=== PATIENT | male | born 1965 | race Caucasian/White ===

== ENCOUNTER 2024-08-25 16:42 | Emergency (ER) | payer SELFPAY ==
[2024-08-25] VITALS (31 sets, daily range): BP systolic 81–236; BP diastolic 49–123; PULSE 68–132; RESP 13–30; TEMP 35–36.6; O2SAT 95–100; BMI 22.9
--- NOTE | ~2024-08-25 | XR_ITS ---
CLINICAL HISTORY: tube placement 1 view chest x-ray Comparison: None Findings: No consolidation, pleural effusion or pneumothorax. Heart size is normal. No acute fracture. IMPRESSION: 1. No acute cardiopulmonary process. 2. Endotracheal tube tip is obscured by the overlying enteric tube and identified roughly 3.5 cm from the carinal bifurcation. 3. Enteric tube tip is below the diaphragm outside the field of view. The side port is identified in the proximal stomach safely past the esophagogastric junction. This document has been electronically signed by: Geovanna Roberts DO on 08/25/2024 20:25:52
--- NOTE | ~2024-08-25 | CT_ITS ---
CLINICAL HISTORY: fixed gaze left, AMS CTA HEAD WITH CONTRAST, 3D POSTPROCESSING CTA NECK WITH CONTRAST, WITH 3D POSTPROCESSING Comparison: CT/SR - CT HEAD FOR STROKE - 08/25/24 16:47 EST Findings: Aortic arch: Three-vessel arch with patent branch origins. Vertebral arteries: No occlusion or dissection. Extracranial carotid arteries: Dense calcific plaque in the proximal left ICA with 60 percent stenosis per NASCET criteria. Calcific plaque in the bilateral carotid bifurcations and proximal right ICA with less than 50 percent stenosis. No occlusion, aneurysm or dissection. Intracranial carotid arteries: Bilateral calcific plaque with no occlusion or flow-limiting stenosis. Vertebrobasilar system: Patent. Calcific plaque in the V4 segment of the left vertebral artery with no occlusion or flow-limiting stenosis. Cerebellar arteries: Patent. Posterior cerebral arteries: Patent. No occlusion or aneurysm. Anterior cerebral arteries: Patent. No occlusion or aneurysm. Middle cerebral arteries: Patent. No occlusion or aneurysm. Please see separate report for CT head/brain. No enhancing mass lesion. Dural venous sinuses are patent. No enhancing cervical mass or fluid collection. Thyroid gland appears unremarkable. No acute abnormalities in the included lungs. No acute osseous abnormalities. Impression: 1. CTA head: No large vessel occlusion or flow-limiting stenosis. 2. CTA neck: 60% stenosis in the proximal left ICA. This document has been electronically signed by: Geovanna Roberts DO on 08/25/2024 17:46:02
--- NOTE | ~2024-08-25 | CT_ITS ---
CLINICAL HISTORY: fixed gaze left, AMS CT HEAD WITHOUT CONTRAST Comparison: None Findings: There is a 4.7 x 6.4 x 3.7 cm intraparenchymal hemorrhage centered in the left basal ganglia region. There is surrounding edema with effacement of the left lateral ventricle. There is hemorrhage in the left lateral ventricle. There is a small amount of hemorrhage in the right lateral ventricle. There is shift of the midline structures to the right by at least 9 mm. Midline 4th ventricle. Intact cerebellar tonsils. Age appropriate generalized parenchymal atrophy. No hydronephrosis. There are periventricular and subcortical white matter hypodensities which are most likely related to microangiopathic gliosis. Intracranial arteriosclerosis. No sinus or mastoid fluid. Visualized orbits: No acute abnormalities. There is no acute fracture. IMPRESSION: 1. Large intraparenchymal hematoma in the left basal ganglia region. 2. Concomitant intraventricular hemorrhage. 3. Rightward midline shift of 9 mm. 4. No hydrocephalus. This document has been electronically signed by: Geovanna Roberts DO on 08/25/2024 17:21:00
--- NOTE | 2024-08-25 16:46 | ECG_ITS ---
Test Reason : STROKE PROTOCOL Blood Pressure : */* mmHG Vent. Rate : 78 BPM Atrial Rate : 78 BPM P-R Int : 148 ms QRS Dur : 82 ms QT Int : 392 ms P-R-T Axes : 75 17 55 degrees QTcB Int : 446 ms Normal sinus rhythm Normal ECG No previous ECGs available Referred By: Taras Pelayo Electronically Signed By: JOSELITO PRIETO MD
[2024-08-25] MEDS: iohexoL 350 MG/ML 100 ML INFUS..BTL IV (17:06)
[2024-08-25 17:13] LABS: Prothrombin Time Whole Bld POC 12.3 sec (11.1-13.5)
--- NOTE | 2024-08-25 17:13 | ED_ITS ---
HPI - Neuro Symptoms/Deficit General Chief Complaint: Stroke Stated Complaint: altered, unresponsive, facial droop, lkwt 1hr Time Seen by Provider: 08/25/24 16:45 History of Present Illness ED Provider: Gita BUCKNER Narrative: The patient is a 59-year-old male who was on no medications. Apparently he was outside of his house working on his car. He has been seen well at around 3:30PM. At around 04:15 the person with whom he was working realized that something was wrong. The patient was not very responsive. He has been lying under the car working on the underside of the car when this happened. The patient was clearly confused and nonverbal. An ambulance was called and he was brought to the hospital. The patient is not able to give any additional history because he is nonverbal. His long-time partner is here. She says that he is a smoker. She also says that he has a history of diabetes and hypertension and he also has a history of a previous stroke. The partner says says that he is on no medications. Related Data Allergies Allergy/AdvReac Type Severity Reaction Status Date / Time Unable to Assess Allergy Verified 08/25/24 17:08 Review of Systems 2 Review of Systems: Yes Unobtainable due to mental status PMFSH Social History Social History Advance Directives: No Advance Directives Information Provided: Yes Do you have a plan to hurt others: No Plan Physical Exam 2 Vital Signs: Vital Signs: Last Vital Signs Pulse 94 08/25/24 19:16 Resp 23 H 08/25/24 19:02 BP 156/92 H 08/25/24 19:16 Pulse Ox 100 08/25/24 18:51 O2 Del Method Nasal Cannula 08/25/24 17:18 O2 Flow Rate 2 08/25/24 17:18 BMI result Body Mass Index 22.9 Const: Other: The the patient is a 59-year-old male with an altered mental status. He seemed to have right-sided flaccidity and a leftward gaze. HEENT: Other: No obvious facial asymmetry. Airway was clear. Eyes: Other: Pupils are about 2-3 mm and equal. There was a left gaze preference Neck: Neck: Yes no lymphadenopathy, Yes no meningeal signs and Yes no JVD Resp: Effort & Inspection: normal respiratory effort Auscultation: clear to auscultation bilaterally Cardio: Rate: tachycardic Rhythm: regular rhythm Heart sounds: S1 normal heart sound present and S2 normal heart sound present GI: Other: The abdomen was soft and unremarkable Skin: Other: Skin was dry and unremarkable Neuro: Other: The patient had an altered mental status. He responded to painful stimuli. He was nonverbal. His GCS was approximately 8. He had a left gaze preference. Pupils were 2-3 mm and equal. He seemed to have right-sided flaccidity. General: no meningeal signs Extrem: Other: No peripheral edema Medications Administered Generic Name Dose Route Start Last Admin Trade Name Freq PRN Reason Stop Dose Admin Nicardipine HCl 25 mg/ Sodium 250 mls @ 0 mls/hr 08/25/24 17:15 08/25/24 19:00 Chloride IVCONT 0 mg/hr .Q0M FRANKIE 0 mls/hr Titration Protocol Per Protocol Propofol 1,000 mg in 100 mls @ 0 mls/hr 08/25/24 18:15 08/25/24 19:16 Diprivan IVCONT 37.5 mcg/kg/min .Q0M FRANKIE 15.8 mls/hr Titration Protocol Per Protocol Fentanyl 1,000 mcg in 100 mls @ 0 mls/hr 08/25/24 18:45 08/25/24 19:15 Sublimaze/Ns IVCONT 100 mcg/hr .Q0M FRANKIE 10 mls/hr Titration Protocol Per Protocol Norepinephrine Bitartrate 8 mg in 250 mls @ 0 mls/hr 08/25/24 19:00 08/25/24 19:14 Levophed IVCONT 0 mcg/kg/min .Q0M FRANKIE 0 mls/hr Titration Protocol Per Protocol Discontinued Medications Generic Name Dose Route Start Last Admin Trade Name Freq PRN Reason Stop Dose Admin Etomidate 20 mg 08/25/24 18:02 08/25/24 18:17 Etomidate 20 Mg/10 Ml Vial IVPUSH 08/25/24 18:03 20 mg ONCE ONE Administration Iohexol 100 ml 08/25/24 17:05 08/25/24 17:06 Iohexol 350 Mg/Ml 100 Ml Infus..Btl IV 08/25/24 17:06 70 ml ONCE ONE Administration Succinylcholine Chloride 100 mg 08/25/24 18:02 08/25/24 18:31 Succinylcholine Chloride 200 Mg/10 Ml Vial IVPUSH 08/25/24 18:03 100 mg ONCE ONE Administration Procedures Intubation Intubation Type:: Emergency Endotracheal Intubation Intubation Date:: 08/25/24 sedative: Etomidate Mg Given: 20 paralytic: Succinylcholine Mg Given: 100 Laryngoscope: fiber optic video scope ET Tube Size: 7.5 ET Tube Uncuffed: Yes Tube Secured Depth (cm): 25 Tube Secured Location: lips Tube Placement Confirmation: visualized tube passing through cords, equal breath sounds bilaterally and confirmation by capnometry Patient Tolerated Procedure: well Intubation Complications: none Medical Decision Making Medical Decision Making [facility] Narrative: The patient is a 59-year-old male who came in with a an acute change in mental status just prior to the calling of an ambulance. He arrived hypertensive and quite altered with left gaze preference and right-sided weakness. He was made a code stroke. He had a noncontrast head CT that showed a large left-sided intracranial hemorrhage. CT angiogram does not show any obvious significant pathology. The patient was hypertensive on arrival and was promptly started on a nicardipine drip. Given the patient's low GCS level and frequent gagging I thought he needed to be intubated for airway protection. He was given 20 mg of etomidate and 100 mg of succinylcholine. He was easily intubated with a 7.5 ET tube using a GlideScope. He was then started on a propofol drip. We went up to a dose of 50 mcg per hours a propofol but the patient is blood pressure dropped even though he was bucking the ventilator. We reduce the propofol dose and started a fentanyl drip as well. I contacted [facility] and [facility] but they were both closed a transfers because of volume. I then contacted [facility] and the patient has been accepted. I spoke to . The accepting doctor will be the ER doctor Dr. Golden. Chest x-ray shows adequate placement of the ET tube and orogastric tube. Lab Data 08/25/24 17:05 08/25/24 17:05 Labs: Lab Results 08/25/24 08/25/24 Range/Units 17:03 17:05 WBC 5.2 (4.8-10.8) X10*3/uL RBC 4.21 L (4.60-5.80) X10*6/uL Hgb 13.6 L (14.0-18.0) g/dl Hct 37.6 L (42.0-52.0) % MCV 89.3 (80.0-98.0) fL MCH 32.3 (27.0-33.0) pg MCHC 36.2 H (31.0-36.0) g/dl RDW 13.3 (11.0-16.0) % Plt Count 176 (160-400) X10*3/uL MPV 8.9 L (9.4-12.4) fL Immature Gran % (Auto) 0.4 (0.0-0.4) % Neut % (Auto) 57.3 (45-73) % Lymph % (Auto) 25.0 (20-40) % Foard % (Auto) 11.9 H (2-11) % Eos % (Auto) 4.6 H (0-4) % Baso % (Auto) 0.8 (0-2) % Lymph # (Auto) 1.3 (1.2-4.9) X10*3/uL Foard # (Auto) 0.6 (0.1-1.2) X10*3/uL Eos # (Auto) 0.2 (0.0-0.4) X10*3/uL Baso # (Auto) 0.0 (0.0-0.2) X10*3/uL Abs Immat Gran (auto) 0.02 (0.00-0.03) X10*3/uL Absolute Neuts (auto) 3.0 (2.0-8.3) x10*3/uL Absolute Nucleated RBC 0.000 (0.0-0.012) X10*3/uL Nucleated RBC % (auto) 0.0 (0.0-0.2) /100WBC Hold Purple Top SEE NOTE PT 10.7 L (10.9-12.4) SEC Whole Blood PT 12.3 (11.1-13.5) sec INR 0.9 (0.9-1.1) Whole Blood INR 1.0 (0.9-1.1) APTT 29.8 (26.0-36.8) SEC Sodium 135 (135-145) mmol/L Potassium 4.0 (3.3-5.1) mmol/L Chloride 103 (96-108) mmol/L Carbon Dioxide 23 (22-29) mmol/L Anion Gap 13 (12-20) BUN 14 (9-16) mg/dL Creatinine 1.01 (0.5-1.4) mg/dL Estim Creat Clear Calc 77.2 Estimated GFR > 60 POC Glucose 115 (60-115) mg/dL Random Glucose 94 (60-115) mg/dL Calcium 8.9 (8.4-10.2) mg/dL Troponin I High Sens < 2.7 (<3.5-35.0) ng/L Triglycerides 116 (<150) mg/dL Cholesterol 182 (<200) mg/dL LDL Cholesterol, Calc 99 (<100) mg/dL HDL Cholesterol 60 (>40) mg/dL Hold Green Top See Note Hold Yellow Top See Note Ethyl Alcohol < 10 mg/dL Discharge Plan Discharge Clinical Impression: Acute intracerebral hemorrhage Patient Disposition: [facility] Transfer Details: [facility] Print Language: Welsh
[2024-08-25 17:14] LABS: Glucose, Whole Blood 115 mg/dL (60-115)
[2024-08-25 17:15] LABS: MANUAL DIFF FLAG NO
[2024-08-25] MEDS: niCARdipine HCL 25 MG in 0.9 % Sodium Chloride 240 ML 50 MG IVCONT (17:16)
[2024-08-25 17:27] LABS: Basophils Percent Auto 0.8 % (0-2); Eosinophils Absolute Auto 0.2 X10*3/uL (0.0-0.4); Eosinophils Percent Auto 4.6 % (0-4); Hematocrit 37.6 % (42.0-52.0); Hemoglobin 13.6 g/dl (14.0-18.0); Imm Gran Abs Auto 0.02 X10*3/uL (0.00-0.03); Imm Gran Pct Auto 0.4 % (0.0-0.4); Lymphocytes Absolute Auto 1.3 X10*3/uL (1.2-4.9); Mean Corpuscular HGB Conc 36.2 g/dl (31.0-36.0); Mean Corpuscular Hemoglobin 32.3 pg (27.0-33.0); Mean Corpuscular Volume 89.3 fL (80.0-98.0); Mean Platelet Volume 8.9 fL (9.4-12.4); Monocytes Absolute Auto 0.6 X10*3/uL (0.1-1.2); Monocytes Percent Auto 11.9 % (2-11); Neutrophils Percent Auto 57.3 % (45-73); Platelet Count 176 X10*3/uL (160-400); Red Blood Count 4.21 X10*6/uL (4.60-5.80); Red Cell Distribution Width 13.3 % (11.0-16.0); White Blood Count 5.2 X10*3/uL (4.8-10.8)
[2024-08-25 17:36] LABS: Anion Gap 13 (12-20); Blood Urea Nitrogen 14 mg/dL (9-16); Calcium 8.9 mg/dL (8.4-10.2); Carbon Dioxide 23 mmol/L (22-29); Chloride 103 mmol/L (96-108); Cholesterol 182 mg/dL (<200); Creatinine Clr Calc Pharmacy 77.2; Estimated Glomerular Filt Rate > 60; Ethanol < 10 mg/dL; Glucose Random 94 mg/dL (60-115); HDL Cholesterol 60 mg/dL (>40); LDL Cholesterol Calculated 99 mg/dL (<100); Sodium 135 mmol/L (135-145); Triglycerides 116 mg/dL (<150)
[2024-08-25 17:37] LABS: INTERNATIONAL NORM RATIO 0.9 (0.9-1.1); Prothrombin Time 10.7 SEC (10.9-12.4)
[2024-08-25 17:39] LABS: Partial Thromboplastin Time 29.8 SEC (26.0-36.8)
[2024-08-25 17:41] LABS: Stroke Lab Use COMPLETE
[2024-08-25 17:42] LABS: Troponin-I High Sensitivity < 2.7 ng/L (<3.5-35.0)
[2024-08-25] MEDS: Etomidate 20 MG/10 ML VIAL IVPUSH (18:17)
[2024-08-25] MEDS: propofoL 1,000 MG/100 ML VIAL 12.64 MG IVCONT (18:26)
[2024-08-25] MEDS: Succinylcholine Chloride 200 MG/10 ML VIAL 100 MG IVPUSH (18:31)
[2024-08-25] MEDS: fentaNYL citrate/NS 1,000 MCG/100 ML PLAST..BAG 2.5 MCG IVCONT (18:51)
[2024-08-25] MEDS: Norepinephrine Bitartrate/D5W 8 MG/250 ML PLAST..BAG 6.58 MG IVCONT (19:12)
--- NOTE | 2024-08-25 19:25 | PC.NURSE ---
RN to RN phone report given to Bassem at [facility], patient to be transferred once transport available.
[2024-08-25] MEDS: Rocuronium Bromide 50 MG/5 ML VIAL 84 MG IVPUSH (20:24)
[2024-08-25] MEDS: propofoL 1,000 MG/100 ML VIAL 10.53 MG IVCONT (20:25)
--- NOTE | 2024-08-25 20:54 | PC.NURSE ---
Assumed care of this patient approximately 1800 - patient initially worked up as stroke alert, on nicardipine gtt to lower blood pressures. Patient found to have a large left-sided intracranial hemorrhage on CT scan, needing intubation for airway management, intubated by Dr. Grajeda w/ RT Billy at bedside 7.5 ET tube, 25 @ lip, OG tube placed by Dt. Taras - CXR completed to confirm placement. Propofol gtt started. BP initially dropped after intubation - Nicardipine gtt stopped. Patient grabbing at tube/ bucking vent, needing more sedation, Fentanyl gtt started. Both prop and fentanyl gtt titrated to desired sedation level, then BP became difficult keep elevated. Levophed gtt then started. EMS transfer team to bedside, concerned about BP fluctuating w/ increasing sedation needs and distance to higher acuity hospital. Propofolol gtt, fentanyl gtt, and Levophed gtt titrated for sedation and optomize BP. IV push Rocuronium given before transfer of patient to EMS stretcher to keep patient sedated. Patient successfully transferred out of dept by EMS w/ patient stable on vent, bps stable 120's - 130's/70's - 80's. See MAR for all titrations.
== END 2024-08-25 20:45 | disposition short-term general hospital (02) ==
PROVIDERS: Emergency Provider Emergency Medicine; PCP Internal Medicine
DX: I61.9 Nontraumatic intracerebral hemorrhage, unspecified (principal); R29.810 Facial weakness; R00.0 Tachycardia, unspecified; R40.2430 Glasgow coma scale score 3-8, unspecified time; I10 Essential (primary) hypertension; F17.210 Nicotine dependence, cigarettes, uncomplicated; Z79.899 Other long term (current) drug therapy; Z51.81 Encounter for therapeutic drug level monitoring
CPT/HCPCS: 31500; 36415; 70450; 70496; 70498; 71045; 80048; 80061; 80307; 82947; 84484; 85025; 85610; 85730; 93005; 94002; 96365; 96366; 96367; 96375; 99285; 99291; 99292; J0330; J2404; J2704; J3010; Q9967

== ENCOUNTER → 2024-08-25 16:46 | Outpatient (BNV) | payer MEDICAID, SELFPAY | PROVIDERS: Emergency Provider Emergency Medicine; Visit Provider Radiology Diagnostic Radiology | DX: I61.0 Nontraumatic intracerebral hemorrhage in hemisphere, subcortical (principal); I65.22 Occlusion and stenosis of left carotid artery; R41.82 Altered mental status, unspecified; Z43.4 Encounter for attention to other artificial openings of digestive tract | CPT/HCPCS: 70450; 70496; 70498; 71045 ==

== ENCOUNTER → 2024-08-25 16:46 | Outpatient (BNV) | payer MEDICAID, SELFPAY | PROVIDERS: Emergency Provider Emergency Medicine; PCP Internal Medicine; Visit Provider Internal Medicine Cardiovascular Disease | DX: I63.9 Cerebral infarction, unspecified (principal) | CPT/HCPCS: 93010 ==